=== PATIENT | female | born 1995 | race Caucasian/White ===

== ENCOUNTER 2021-11-30 11:31 | Emergency (ER) | payer OTHER, SELFPAY ==
--- NOTE | ~2021-11-30 | CT_ITS ---
EXAMINATION: CT abdomen pelvis wo con DATE: 11/30/2021 12:55 INDICATION: Flank pain and fever TECHNIQUE: Computed tomography (CT) of the abdomen and pelvis was performed without intravenous contr ast. The dose-length product (DLP) was 220.88 mGy-cm. Automated exposure control and iterative recons truction technique were employed. COMPARISON: None FINDINGS: There are airspace opacities of the right lower lobe. The heart size is normal. The liver, spleen, pancreas, and adrenal glands are normal. The gallbladder appears to be contracted. There is a 1.5 cm cyst of the right kidney lower pole. An extrarenal pelvis is noted in the left kidney. No pat hologically enlarged abdominal or pelvic lymph nodes are identified. There is no free intraperitoneal gas or evidence of bowel obstruction. The appendix is normal. There are phleboliths of the pelvis. T here is thoracolumbar dextroscoliosis. IMPRESSION: 1. No CT correlate for the patient's symptoms. Reviewed, dictated and finalized at location A. [employer]UMENTATION [employer] CONTROLS DESIGNER
--- NOTE | ~2021-11-30 | XR_ITS ---
EXAMINATION: XR chest 1V portable INDICATION: Postoperative fever TECHNIQUE: Portable AP chest at 1209 hours COMPARISON: None available FINDINGS: There are patchy airspace opacities of the right lung base. No pleural effusion or pneumoth orax is identified. The cardiomediastinal silhouette is normal. IMPRESSION: 1. Patchy right basilar airspace opacities, consistent with atelectasis versus pneumonia. Reviewed, dictated and finalized at location A. ENSATION AND BENEFITS MANAGER
--- NOTE | 2021-11-30 11:49 | ED.FEMALEGU ---
HPI - Female Genitourinary General Chief complaint: Urogenital-Female Stated complaint: Urinary Symptoms Time Seen by Provider: 11/30/21 11:37 Source: patient Mode of arrival: ambulatory Limitations: no limitations History of Present Illness HPI Narrative: This is a 26 year old female that presents to the ER for urinary frequency ongoing over the last couple of days. Associated with fever, and lower abdominal pain. Reports she is 3 days post-op from a nasal surgery. Reports a mild cough. Denies shortness of breath, vomiting or hematuria. Related Data Allergies Allergy/AdvReac Type Severity Reaction Status Date / Time No Known Allergies Allergy Verified 11/30/21 12:34 Review of Systems Review of Systems: CONSTITUTIONAL: Reports fever GASTROINTESTINAL: Reports abdominal pain. Denies nausea, vomiting GENITOURINARY: Denies dysuria or hematuria. All systems reviewed & are unremarkable except as noted in HPI and below PMFSH Past Medical History Medical History (Updated 11/30/21 @ 14:05 by Marta Bowling PA-C) History of asthma Social History Social History (Updated 11/30/21 @ 11:56 by Marta Bowling PA-C) Smoking status: Never smoker Exam Narrative: GENERAL: Well-appearing, well-nourished, and in no acute distress. HEAD: Normocephalic, atraumatic. EYES: EOMI. CHEST: Clear to auscultation. No respiratory distress. No wheezes rales or rhonchi HEART: Regular rate and rhythm. No murmur heard. Normal peripheral pulses. ABDOMEN: Soft, nondistended, normal active bowel sounds. Mild tenderness to palpation throughout the lower abdomen, without guarding. Left-sided CVA tenderness EXTREMITIES: Normal range of motion. No edema. SKIN: Warm, dry, no rash. NEURO: No focal deficits. Alert and oriented x3. PSYCH: Normal mood and affect Course Vital Signs Vital signs: Vital Signs Temperature 100.4 F H 11/30/21 11:58 Pulse Rate 108 H 11/30/21 11:58 Respiratory Rate 18 11/30/21 11:58 Blood Pressure 137/91 H 11/30/21 11:58 Pulse Oximetry 100 11/30/21 11:58 Temperature 98.2 F 11/30/21 13:34 Pulse Rate 108 H 11/30/21 11:58 Respiratory Rate 18 11/30/21 11:58 Blood Pressure 137/91 H 11/30/21 11:58 Pulse Oximetry 100 11/30/21 11:58 MDM - Female Genitourinary MDM Narrative Medical decision making narrative: Patient presents to the emergency department for postop fever. Febrile upon arrival. Given dose of ibuprofen in the ED with relief. Also mildly tachycardic. This normalized with IV fluids. Oxygen saturation has remained normal on room air. CBC without leukocytosis. Lactic acid is not elevated. Metabolic panel without concerning findings. UA without evidence of infection. Chest x-ray shows a patchy right basilar airspace opacity. CT scan of the abdomen and pelvis is without acute intra-abdominal/pelvic findings. Does once again show a right basilar airspace opacity consistent with developing pneumonia. Patient does report a mild cough. Will be treated with oral antibiotics for bacterial pneumonia. She is COVID vaccinated, and does report she just recently had COVID in September. She is stable and felt appropriate for further outpatient evaluation. She was given warnings to return to the ER Lab Data Attestation: I reviewed the patient's lab results. Result diagrams: 11/30/21 12:05 11/30/21 12:05 Labs: Lab Results 11/30/21 11/30/21 11/30/21 Range/Units 11:40 12:05 12:05 WBC 6.6 (4.5-10.0) K/mm3 RBC 4.48 (4.2-5.4) M/mm3 Hgb 14.5 (12.0-15.0) g/dL Hct 44.4 (37.0-47.0) % MCV 99.1 (80-100) fl MCH 32.4 (26-34) pg MCHC 32.7 (32-36) g/dl RDW 13.1 (11.5-14.5) % Plt Count 244 (150-375) k/mm3 MPV 9.1 (7.4-10.4) fl Immature Gran % (Auto) 0.5 (0-0.5) % Neut % (Auto) 72.9 (45.5-73.1) % Lymph % (Auto) 15.8 L (18.3-44.2) % [place] % (Auto) 9.4 H (2.6-8.5) % Eos % (Auto) 0.6 (0-4.4) % [place]
[2021-11-30 11:54] LABS: Appearance Urine Clear (Clear); Bilirubin Urine Negative (Negative); Glucose Urine UA Negative (Negative); Ketones Urine Negative (Negative); Leukocyte Esterase Ur Negative LEU/UL (Negative); Nitrate Urine Negative (Negative); Protein Urine Negative (Negative); Urobilinogen Urine 0.2 mg/dL (<2.0)
[2021-11-30 11:55] LABS: Add Urine Microscopic? YES; Blood Urine Trace-Intact (Negative); Color Urine Light Yellow (Yellow)
[2021-11-30 11:58] VITALS: BP 137/91; PULSE 108; RESP 18; TEMP 38; O2SAT 100
[2021-11-30 12:04] LABS: Bacteria Urine 1+ /hpf; RBC Urine 0-2 /hpf (0-2); Squamous Epithelial Cell Urine Rare /hpf (Few); WBC Urine 0-3 /hpf
[2021-11-30 12:16] LABS: Basophils Absolute Auto 0.1 K/mm3 (0.0-0.1); Basophils Percent Auto 0.8 % (0.2-1.2); Eosinophils Percent Auto 0.6 % (0-4.4); Hematocrit 44.4 % (37.0-47.0); Hemoglobin 14.5 g/dL (12.0-15.0); Immature Granulocyte Absolute 0.03 K/mm3 (0.00-0.031); Immature Granulocyte Percent A 0.5 % (0-0.5); Lymphocytes Absolute Auto 1.04 K/mm3 (0.9-3.2); Lymphocytes Percent Auto 15.8 % (18.3-44.2); Mean Corpuscular HGB Conc 32.7 g/dl (32-36); Mean Corpuscular Hemoglobin 32.4 pg (26-34); Mean Corpuscular Volume 99.1 fl (80-100); Mean Platelet Volume 9.1 fl (7.4-10.4); Monocytes Absolute Auto 0.6 K/mm3 (0.1-0.6); Monocytes Percent Auto 9.4 % (2.6-8.5); Neutrophils Absolute Auto 4.8 K/mm3 (1.3-6.7); Neutrophils Percent Auto 72.9 % (45.5-73.1); Platelet Count Result 244 k/mm3 (150-375); Red Blood Count 4.48 M/mm3 (4.2-5.4); Red Cell Distribution Width 13.1 % (11.5-14.5); White Blood Count 6.6 K/mm3 (4.5-10.0)
[2021-11-30 12:25] LABS: Anion Gap 10 mmol/L (8-16); Blood Urea Nitrogen 9 mg/dL (7-17); Calcium 9.9 mg/dL (8.4-10.2); Carbon Dioxide 27 mmol/L (22-30); Chloride 100 mmol/L (98-107); Estimated CRCL calculation 91 ml/min; Estimated Glomerular Filt Rate > 60; Glucose 141 mg/dL (65-110); Sodium 137 mmol/L (137-145)
[2021-11-30 12:30] LABS: Alanine Aminotransferase 8 U/L (4-35); Albumin Level 4.5 g/dL (3.5-5.1); Alkaline Phosphatase 47 U/L (38-126); Aspartate Amino Transferase 23 U/L (14-36); Bilirubin,Total 0.4 mg/dL (0.2-1.3); Lipase 118 U/L (23-300)
[2021-11-30 12:33] LABS: Lactic Acid Reflex 1.6 mmol/L (0.7-2.1)
[2021-11-30] MEDS: SODIUM CHLORIDE 0.9% IV 1,000 ML 999 ML IV CONT (12:34)
[2021-11-30 12:41] LABS: CRP 4.9 mg/dL (<1.0)
[2021-11-30] MEDS: IBUPROFEN IV 400 MG in SODIUM CHLORIDE 0.9% IV 100 ML 200 MG IVPB (12:50)
[2021-11-30 13:34] VITALS: TEMP 36.8
[2021-11-30 14:21] VITALS: BP 135/78; PULSE 90; RESP 16; TEMP 36.8; O2SAT 100
== END 2021-11-30 14:59 | disposition home or self-care (01) ==
PROVIDERS: Physician Assistant; Emergency Provider Emergency Medicine
DX: J18.9 Pneumonia, unspecified organism (principal); J45.909 Unspecified asthma, uncomplicated; Z86.16 Personal history of COVID-19
CPT/HCPCS: 36415; 71045; 74176; 80048; 80076; 81001; 81025; 83605; 83690; 85025; 86140; 96365; 99284; J7030